=== PATIENT | male | born 1970 | race African-American/Black ===

== ENCOUNTER 2022-02-24 17:41 | Inpatient (IN) | payer MEDICAID, SELFPAY ==
[2022-02-24] MEDS ORDERED: Fentanyl CADD 100 ML IV SCH (18:00)
[2022-02-24 18:05] LABS: Actual Bicarbonate (HCO3a) 14.6 mEq/L (22-28); Analyzer IN Cardio ER; Base Excess (BEa) -12.5 mEq/L (-2.0 to +3.0); CO2 Tension 37.6 mmHg (35.0-45.0); Calcium, Ionized (arterial) 1.09 mmol/L (1.12-1.30); Carboxyhemoglobin (COHb) 0.1 gm% (0.0-3.0); Hemoglobin (Hb) 15.7 g/dL (14.0-18.0); O2 Tension (PaO2), arterial 92.7 mmHg (80.0-100.0)
[2022-02-24 18:31] LABS: Bilirubin Negative (Negative); Glucose, Urine (Dipstick) Normal (Negative); Ketone, Urine Trace mg/dL (Negative); Leukocyte 250 Leu/uL (Negative); Nitrite Negative (Negative); Protein, Urine (Dipstick) 70 mg/dL (Neg-Trace); Specific Gravity, Urine 1.014 (1.002-1.036); Squamous Epithelial 0-3 HPF (0-3); Urobilinogen Normal mg/dL (Less than 2); pH, Urine 5.5 (5.0-9.0)
[2022-02-24 18:32] LABS: Amphetamine Detected (NotDetected); Barbiturates Screen Not Detected (NotDetected); Benzodiazepine Screen Not Detected (NotDetected); Cocaine Metabolite Screen Not Detected (NotDetected); Methadone Not Detected (NotDetected); Methamphetamine Detected (NotDetected); Opiate Screen Not Detected (NotDetected); Oxycodone Screen Not Detected (NotDetected); Phencyclidine (PCP) Not Detected (NotDetected); THC/Cannabinoid Screen Not Detected (NotDetected); Tricyclic Screen Not Detected (NotDetected)
[2022-02-24 18:34] LABS: INR-International Normal Ratio 1.2; Prothrombin Time 15.1 sec (12.0-14.7)
[2022-02-24 18:48] LABS: ALT (SGPT) 171 U/L (8-55); AST (SGOT) 608 U/L (5-34); Alkaline Phosphatase 104 U/L (40-110); Anion Gap 29 mmol/L (10-20); BUN (Urea Nitrogen) 22 mg/dL (8.9-20.6); Bilirubin, Total 1.6 mg/dL (0.2-1.2); Calc. Creatinine Clearance 0 mL/min (70-130); Calcium 9.2 mg/dL (7.8-10.44); Carbon Dioxide 11 mmol/L (22-29); Chloride 116 mmol/L (98-107); Estimated GFR 19; Globulin 4.1 g/dL (2.4-3.5); Lipase 124 U/L (8-78); Magnesium 2.2 mg/dL (1.6-2.6); Potassium 6.3 mmol/L (3.5-5.1); Protein, Total 9.1 g/dL (6.0-8.3); Sodium 150 mmol/L (136-145)
[2022-02-24 18:52] LABS: Acetaminophen Less than 10.0 mcg/mL (10.0-30.0); Alcohol Less than 10 mg/dL (Less than 10); Salicylate Less than 8.0 mg/dL (15.0-30.0)
[2022-02-24 18:57] LABS: Glucose 57 mg/dL (70-105)
[2022-02-24 18:59] LABS: Clarity Cloudy (Clear); Unclassified Crystals 1+ HPF (None Seen)
[2022-02-24 19:02] LABS: Yeast-Budding None Seen HPF (None Seen)
[2022-02-24 19:04] LABS: Bacteria/HPF 1+ HPF (None Seen); Sperm/HPF 3+ HPF (None Seen)
[2022-02-24 19:05] LABS: Blood, Urine 2+ (Negative)
[2022-02-24 19:14] LABS: Band 9 % (5-11); Hypersemented Neutrophil SLIGHT; Lymphocytes 6 % (21-51); MDiff Complete? YES; Mean Corpuscular Hemoglobin 31.3 pg (27.0-31.0); Mean Corpuscular Volume 89.5 fL (78.0-98.0); Mean Platelet Volume 8.5 fL (7.4-10.4); Monocytes 7 % (0-10); Neutrophil 76 % (42-75); Platelet Count 141 thou/uL (130-400); Platelet Morphology Comment Appears Adequate; Polychromasia MODERATE = 3-4 cells (100X) (0-2/hpf); RBC Distribution Width 12.8 % (11.5-14.5); Reactive Lymphocytes 1 % (0-10); Red Blood Cell (RBC) Count 5.43 mill/uL (4.70-6.10); Stomatocytes SLIGHT = 2-5 cells (100X) (0-1/hpf); White Blood Cell (WBC) Count 16.2 thou/uL (4.8-10.8)
[2022-02-24] MEDS ORDERED: Sodium Bicarb 50 MEQ/50 ML Abboject 8.4% SYRINGE ONE (19:28)
[2022-02-24] MEDS ORDERED: CALCIUM GLUC 1GM/NS 50ML BAG ONE ×2 (19:28→19:30)
[2022-02-24] MEDS ORDERED: Dextrose 50% Abboject 50 ML SYRINGE ONE (19:28)
[2022-02-24] MEDS ORDERED: Insulin Regular 300 UNITS/3 ML VIAL ONE (19:28)
[2022-02-24] MEDS ORDERED: Sodium Bicarbonate 100 MEQ in Dextrose 5% in Water 1,000 ML IV SCH (19:30)
[2022-02-24] MEDS ORDERED: Calcium Gluc 4.6 MEQ/10 ML (100 MG/ML) ONE (19:31)
[2022-02-24 19:32] LABS: CK (CPK) 25808 U/L (30-200)
[2022-02-24 19:39] LABS: SARS-CoV-2 NAA Rapid Test Not Detected (NotDetected)
[2022-02-24 20:02] LABS: Anion Gap 23 mmol/L (10-20); BUN (Urea Nitrogen) 23 mg/dL (8.9-20.6); Calc. Creatinine Clearance 0 mL/min (70-130); Carbon Dioxide 10 mmol/L (22-29); Chloride 121 mmol/L (98-107); Estimated GFR 20; Potassium 4.9 mmol/L (3.5-5.1); Sodium 149 mmol/L (136-145)
[2022-02-24 20:05] LABS: Glucose 57 mg/dL (70-105)
[2022-02-24] MEDS ORDERED: Cefepime 2 GM VIAL ONE (20:17)
[2022-02-24 20:33] LABS: CKMB 72.8 ng/mL (0-6.6)
[2022-02-24] MEDS ORDERED: Midazolam HCl 2 mg/2 ml Vial SLOW IVP PRN (21:04)
[2022-02-24] MEDS: Propofol 1,000 MG/100 ML VIAL IV PRN (21:14)
[2022-02-24] MEDS ORDERED: DISCONTINUE PREVIOUS NARCOTIC PAIN MEDICATIONS AND BENZODIAZEPINES FS SCH (21:15)
[2022-02-24] MEDS ORDERED: Morphine 4 MG/ML VIAL SLOW IVP PRN (21:15)
[2022-02-24] MEDS ORDERED: Propofol BOLUS 1,000 MG/100 ML VIAL IV PRN (21:15)
[2022-02-24] MEDS ORDERED: Fentanyl BOLUS 250 ML IVPB PRN (21:15)
[2022-02-24 21:16] LABS: pH, Arterial 7.21 (7.35-7.45)
[2022-02-24 21:18] LABS: Puncture Site RRA
[2022-02-24] MEDS ORDERED: Ondansetron PF 4 MG/2 ML Vial IVP PRN (21:40)
[2022-02-24] MEDS ORDERED: Acetaminophen 325 MG TAB PO PRN (21:40)
[2022-02-24 21:46] LABS: Lactic Acid 4.9 mmol/L (0.5-2.2)
[2022-02-24 21:54] LABS: Troponin I 0.748 ng/mL (< 0.028)
[2022-02-24 23:22] LABS: Anion Gap 21 mmol/L (10-20); BUN (Urea Nitrogen) 26 mg/dL (8.9-20.6); Calc. Creatinine Clearance 19 mL/min (70-130); Calcium 8.4 mg/dL (7.8-10.44); Carbon Dioxide 12 mmol/L (22-29); Chloride 120 mmol/L (98-107); Estimated GFR 20; Glucose 150 mg/dL (70-105); Potassium 3.1 mmol/L (3.5-5.1); Sodium 150 mmol/L (136-145)
[2022-02-24] MEDS ORDERED: Potassium Chloride 20 MEQ TAB PO SCH (23:45)
[2022-02-25] MEDS ORDERED: Lorazepam 1 MG TAB PO PRN
[2022-02-25] MEDS ORDERED: Dextrose 50% Abboject 50 ML SYRINGE SLOW IVP PRN (00:04)
[2022-02-25] MEDS ORDERED: Dextrose 5% in Water 1,000 ML IV PRN (00:04)
[2022-02-25 04:46] LABS: ALT (SGPT) 443 U/L (8-55); AST (SGOT) 2742 U/L (5-34); Albumin 3.5 g/dL (3.5-5.0); Alkaline Phosphatase 70 U/L (40-110); Anion Gap 19 mmol/L (10-20); BUN (Urea Nitrogen) 30 mg/dL (8.9-20.6); Calc. Creatinine Clearance 18 mL/min (70-130); Calcium 8.2 mg/dL (7.8-10.44); Carbon Dioxide 16 mmol/L (22-29); Chloride 116 mmol/L (98-107); Estimated GFR 18; Globulin 2.9 g/dL (2.4-3.5); Glucose 138 mg/dL (70-105); Potassium 2.9 mmol/L (3.5-5.1); Protein, Total 6.4 g/dL (6.0-8.3); Sodium 148 mmol/L (136-145)
[2022-02-25] MEDS ORDERED: Potassium Chloride 20 MEQ TAB PER TUBE SCH (05:00)
[2022-02-25 05:12] LABS: CK (CPK) Greater than 40000 U/L (30-200)
[2022-02-25 05:37] LABS: Magnesium 2.1 mg/dL (1.6-2.6)
[2022-02-25 06:46] LABS: Hemoglobin 14.1 g/dL (14.0-18.0); Mean Corpuscular HGB CONC 34.7 g/dL (32.0-36.0); Mean Corpuscular Hemoglobin 31.2 pg (27.0-31.0); Mean Platelet Volume 9.4 fL (7.4-10.4); Platelet Count 21 thou/uL (130-400); Platelet Morphology Comment Appears Decreased; RBC Distribution Width 13.1 % (11.5-14.5); RBC Morphology Normal; Red Blood Cell (RBC) Count 4.51 mill/uL (4.70-6.10); White Blood Cell (WBC) Count 9.5 thou/uL (4.8-10.8)
[2022-02-25 06:50] LABS: Troponin I 1.414 ng/mL (< 0.028)
[2022-02-25 08:25] LABS: Mean Corpuscular Volume 91.3 fL (78.0-98.0); Mean Platelet Volume 9.3 fL (7.4-10.4); Platelet Count 29 thou/uL (130-400); RBC Distribution Width 13.1 % (11.5-14.5); Red Blood Cell (RBC) Count 4.39 mill/uL (4.70-6.10); White Blood Cell (WBC) Count 8.9 thou/uL (4.8-10.8)
[2022-02-25] MEDS ORDERED: Famotidine 20 MG TAB PO SCH (09:00)
[2022-02-25] MEDS ORDERED: Cefepime 1 GM in Sodium Chloride 0.9% 100 ML IVPB SCH (09:00)
[2022-02-25] MEDS ORDERED: Heparin 5,000 UNITS/ML VIAL SC SCH ×2 (09:00→21:00)
[2022-02-25 09:42] LABS: Anion Gap 19 mmol/L (10-20); BUN (Urea Nitrogen) 32 mg/dL (8.9-20.6); Calc. Creatinine Clearance 17 mL/min (70-130); Calcium 7.9 mg/dL (7.8-10.44); Carbon Dioxide 18 mmol/L (22-29); Chloride 114 mmol/L (98-107); Estimated GFR 17; Glucose 98 mg/dL (70-105); Potassium 3.3 mmol/L (3.5-5.1); Sodium 148 mmol/L (136-145)
[2022-02-25] MEDS: Propofol 1,000 MG/100 ML VIAL IV PRN (09:45)
[2022-02-25] MEDS: Sodium Bicarbonate 50 MEQ in Dextrose 5% in Water 1,000 ML IV SCH ×2 (11:11→21:20)
[2022-02-25] MEDS ORDERED: Potassium Bicarbonate/Cit Ac 20 MEQ TAB PER TUBE SCH (11:15)
[2022-02-25] MEDS ORDERED: Lactated Ringer's 1,000 ML IV SCH (11:15)
[2022-02-25] MEDS ORDERED: Dexmedetomidine In 0.9 % NaCl 100 ML IVPB SCH (13:00)
[2022-02-25 13:43] LABS: Anion Gap 20 mmol/L (10-20); BUN (Urea Nitrogen) 33 mg/dL (8.9-20.6); Calc. Creatinine Clearance 17 mL/min (70-130); Calcium 7.9 mg/dL (7.8-10.44); Carbon Dioxide 19 mmol/L (22-29); Chloride 111 mmol/L (98-107); Estimated GFR 17; Glucose 98 mg/dL (70-105); Potassium 3.7 mmol/L (3.5-5.1); Sodium 146 mmol/L (136-145)
[2022-02-25 14:15] LABS: INR-International Normal Ratio 1.4; PTT 34.9 sec (22.9-36.1); Prothrombin Time 17.7 sec (12.0-14.7)
[2022-02-25] MEDS ORDERED: Lorazepam 2 MG/ML VIAL IM PRN (18:22)
[2022-02-25] MEDS ORDERED: Ondansetron ODT 4 MG TAB PO PRN (18:30)
[2022-02-25] MEDS ORDERED: Electrolyte Replacement Protocol 1 EACH FS PRN (18:30)
[2022-02-25] MEDS: Lorazepam 1 MG TAB PO SCH ×3 (18:43→23:03)
[2022-02-25] MEDS: Thiamine HCl 200 MG/2 ML VIAL SLOW IVP SCH (18:52)
[2022-02-25 19:06] LABS: Anion Gap 23 mmol/L (10-20); BUN (Urea Nitrogen) 35 mg/dL (8.9-20.6); Calc. Creatinine Clearance 14 mL/min (70-130); Calcium 7.7 mg/dL (7.8-10.44); Carbon Dioxide 21 mmol/L (22-29); Chloride 105 mmol/L (98-107); Estimated GFR 14; Glucose 143 mg/dL (70-105); Potassium 3.9 mmol/L (3.5-5.1); Sodium 145 mmol/L (136-145)
[2022-02-25 19:32] LABS: #Lymphocytes 1.6 thou/uL (1.20-3.40); #Monocytes 0.6 thou/uL (0.11-0.59); #Neutrophils 7.8 thou/uL (1.40-6.50); %Basophils 0.2 % (0.0-1.0); %Eosinophils 0.2 % (0.0-10.0); %Lymphocytes 16.1 % (21.0-51.0); %Monocytes 5.5 % (0.0-10.0); Band 14 % (5-11); Lymphocytes 9 % (21-51); MDiff Complete? YES; Monocytes 2 % (0-10); Neutrophil 75 % (42-75); Nucleated RBC 1 % (0)
[2022-02-26 04:26] LABS: Hemoglobin A1c 5.2 % (4.0-6.0)
[2022-02-26 04:42] LABS: Iron 191 ug/dL (65-175); Iron Binding Capacity, Total 261 mcg/dL (261-462)
[2022-02-26 04:45] LABS: ALT (SGPT) 822 U/L (8-55); AST (SGOT) 3484 U/L (5-34); Albumin 3.3 g/dL (3.5-5.0); Alkaline Phosphatase 68 U/L (40-110); Anion Gap 23 mmol/L (10-20); BUN (Urea Nitrogen) 37 mg/dL (8.9-20.6); Bilirubin, Total 3.3 mg/dL (0.2-1.2); Calc. Creatinine Clearance 12 mL/min (70-130); Calcium 7.5 mg/dL (7.8-10.44); Carbon Dioxide 20 mmol/L (22-29); Cardiac Risk 7.9 (Less than 4.5); Chloride 102 mmol/L (98-107); Cholesterol 142 mg/dl (< 200 Desired); Estimated GFR 11; Glucose 138 mg/dL (70-105); HDL Cholesterol 18 mg/dL (>60 Neg Risk); Iron 191 ug/dL (65-175); Iron Binding Capacity, Total 259 mcg/dL (261-462); Magnesium 1.5 mg/dL (1.6-2.6); Potassium 5.4 mmol/L (3.5-5.1); Protein, Total 6.3 g/dL (6.0-8.3); Sodium 140 mmol/L (136-145); Triglycerides 638 mg/dL (Less than 150)
[2022-02-26 04:57] LABS: Thyroid Stimulating Hormone 2.3784 uIU/mL (0.35-4.94)
[2022-02-26 05:10] LABS: Band 23 % (5-11); Lymphocytes 19 % (21-51); MDiff Complete? YES; Mean Corpuscular HGB CONC 34.8 g/dL (32.0-36.0); Mean Corpuscular Hemoglobin 31.2 pg (27.0-31.0); Mean Corpuscular Volume 89.5 fL (78.0-98.0); Mean Platelet Volume 9.7 fL (7.4-10.4); Metamyelocyte 1 % (0-0); Monocytes 5 % (0-10); Neutrophil 52 % (42-75); Platelet Count 43 thou/uL (130-400); Platelet Morphology Comment Appears Decreased; RBC Distribution Width 13.1 % (11.5-14.5); RBC Morphology Normal; Red Blood Cell (RBC) Count 5.13 mill/uL (4.70-6.10); White Blood Cell (WBC) Count 15.7 thou/uL (4.8-10.8)
[2022-02-26 05:11] LABS: HBCM Index 0.08 S/CO (0-0.79); HBSAg Index 0.29 S/CO (0-0.99); Hep A IgM AB Non-Reactive (NonReactive); Hep A IgM S/CO 0.63 S/CO (0-0.79); Hep B Surf Ag Non-Reactive S/CO (NonReactive); Hep C IgG Ab Non-Reactive (NonReactive); Hep C Index 0.06 S/CO (0-0.79); Hepatitis B Core IgM Abs Non-Reactive (NonReactive)
[2022-02-26] MEDS: Lorazepam 1 MG TAB PO SCH ×3 (05:26→17:38)
[2022-02-26] MEDS: Sodium Bicarbonate 50 MEQ in Dextrose 5% in Water 1,000 ML IV SCH ×2 (05:26→18:27)
[2022-02-26 06:21] LABS: Ferritin 11923.07 ng/mL (22-322)
[2022-02-26] MEDS: Folic Acid 1 MG TAB PO SCH (07:55)
[2022-02-26] MEDS: cefTRIAXone\\ROCEPHIN 1 GM in Sodium Chloride 0.9% 100 ML IVPB SCH (07:55)
[2022-02-26] MEDS: Famotidine 20 MG TAB PO SCH (07:55)
[2022-02-26] MEDS ORDERED: Multivit, Therapeutic 1 TAB PO SCH (09:00)
[2022-02-26] MEDS: Nicotine 21 MG PATCH TOP SCH (10:16)
[2022-02-26 12:53] LABS: Actual Bicarbonate (HCO3a) 21.4 mEq/L (22-28); Analyzer IN Cardio ER; Base Excess (BEa) -1.3 mEq/L (-2.0 to +3.0); CO2 Tension 30.7 mmHg (35.0-45.0); Calcium, Ionized (arterial) 0.94 mmol/L (1.12-1.30); Carboxyhemoglobin (COHb) 0.3 gm% (0.0-3.0); Hemoglobin (Hb) 14.6 g/dL (14.0-18.0); Potassium - ABG Lab 3.95 mmol/L (3.70-5.30); pH, Arterial 7.46 (7.35-7.45)
[2022-02-26 12:59] LABS: Puncture Site RRA
[2022-02-26 13:00] LABS: ALV-art Gradient 98.265 mmHg (0-20)
[2022-02-26] MEDS ORDERED: Furosemide 40 MG/4 ML VIAL SLOW IVP SCH (13:00)
[2022-02-26] MEDS: Thiamine HCl 200 MG/2 ML VIAL SLOW IVP SCH (17:38)
[2022-02-26] MEDS ORDERED: Lorazepam 1 MG TAB PO PRN (18:30)
[2022-02-26] MEDS ORDERED: Dexmedetomidine In 0.9 % NaCl 100 ML IVPB SCH (19:00)
[2022-02-27] MEDS: Lorazepam 1 MG TAB PO SCH (03:57)
[2022-02-27] MEDS: Lorazepam 0.5 MG TAB PO SCH ×3 (06:17→17:28)
[2022-02-27 07:41] LABS: Hemoglobin 13.7 g/dL (14.0-18.0); Mean Corpuscular HGB CONC 34.9 g/dL (32.0-36.0); Mean Corpuscular Hemoglobin 31.4 pg (27.0-31.0); Mean Corpuscular Volume 89.9 fL (78.0-98.0); Mean Platelet Volume 10.9 fL (7.4-10.4); Platelet Count 35 thou/uL (130-400); RBC Distribution Width 12.9 % (11.5-14.5); Red Blood Cell (RBC) Count 4.36 mill/uL (4.70-6.10); White Blood Cell (WBC) Count 14.9 thou/uL (4.8-10.8)
[2022-02-27 07:59] LABS: ALT (SGPT) 772 U/L (8-55); AST (SGOT) 2286 U/L (5-34); Albumin 2.9 g/dL (3.5-5.0); Alkaline Phosphatase 67 U/L (40-110); Anion Gap 21 mmol/L (10-20); BUN (Urea Nitrogen) 52 mg/dL (8.9-20.6); Bilirubin, Total 5.2 mg/dL (0.2-1.2); Calc. Creatinine Clearance 9 mL/min (70-130); Calcium 7.1 mg/dL (7.8-10.44); Carbon Dioxide 24 mmol/L (22-29); Chloride 95 mmol/L (98-107); Estimated GFR 7; Globulin 2.7 g/dL (2.4-3.5); Glucose 126 mg/dL (70-105); Magnesium 1.4 mg/dL (1.6-2.6); Potassium 4.6 mmol/L (3.5-5.1); Protein, Total 5.6 g/dL (6.0-8.3); Sodium 135 mmol/L (136-145)
[2022-02-27] MEDS: cefTRIAXone\\ROCEPHIN 1 GM in Sodium Chloride 0.9% 100 ML IVPB SCH (08:04)
[2022-02-27] MEDS: Folic Acid 1 MG TAB PO SCH ×2 (08:04→08:07)
[2022-02-27] MEDS: Famotidine 20 MG TAB PO SCH ×2 (08:04→08:07)
[2022-02-27] MEDS: Sodium Bicarbonate 50 MEQ in Dextrose 5% in Water 1,000 ML IV SCH ×2 (08:15→18:01)
[2022-02-27 08:26] LABS: Band 22 % (5-11); Eosinophils 1 % (0-10); Lymphocytes 20 % (21-51); MDiff Complete? YES; Monocytes 6 % (0-10); Neutrophil 50 % (42-75); Nucleated RBC 1 % (0); Platelet Morphology Comment Appears Decreased; Polychromasia SLIGHT = 2-3 cells (100X) (0-2/hpf); Reactive Lymphocytes 1 % (0-10)
[2022-02-27 08:48] LABS: CK (CPK) Greater than 40000 U/L (30-200)
[2022-02-27] MEDS ORDERED: Magnesium Sulfate In Water 4 GM in Premix Bag 1 BAG IVPB SCH (09:00)
[2022-02-27] MEDS ORDERED: Haloperidol Lactate 5 MG/ML VIAL SLOW IVP SCH (09:00)
[2022-02-27] MEDS ORDERED: Diazepam 10 MG/2 ML SYRINGE IVP PRN (09:25)
[2022-02-27 09:29] LABS: Hemoglobin A1c 5.2 % (4.0-6.0)
[2022-02-27] MEDS ORDERED: Haloperidol Lactate 5 MG/ML VIAL IM SCH (09:30)
[2022-02-27] MEDS ORDERED: Ondansetron ORAL SOLN. 4 MG/5 ML UDCUP PO PRN (09:40)
[2022-02-27] MEDS ORDERED: Ondansetron PF 4 MG/2 ML Vial IVP PRN (09:40)
[2022-02-27] MEDS: Nicotine 21 MG PATCH TOP SCH (09:43)
[2022-02-27] MEDS ORDERED: Ondansetron ODT 4 MG TAB PO PRN (10:00)
[2022-02-27] MEDS: Magnesium 2 GM/50 ML(in water) 2 GM in Premix Bag 1 BAG IVPB SCH ×2 (13:21→14:36)
[2022-02-27] MEDS ORDERED: Diazepam 10 MG/2 ML SYRINGE IVP SCH ×2 (13:30→18:00)
[2022-02-27] MEDS ORDERED: ceFAZolin 2 GM/Dextrose 50 ML 2 GM in Premix Bag 1 BAG IVPB SCH (13:45)
[2022-02-27] MEDS: Thiamine HCl 200 MG/2 ML VIAL SLOW IVP SCH (17:31)
[2022-02-27] MEDS ORDERED: Lorazepam 1 MG TAB PO PRN (18:30)
[2022-02-27 21:01] LABS: Actual Bicarbonate (HCO3a) 15.4 mEq/L (22-28); Base Excess (BEa) -12.4 mEq/L (-2.0 to +3.0); CO2 Tension 41.8 mmHg (35.0-45.0); Calcium, Ionized (arterial) 0.91 mmol/L (1.12-1.30); Carboxyhemoglobin (COHb) 0.6 gm% (0.0-3.0); Hemoglobin (Hb) 13.2 g/dL (14.0-18.0); O2 Tension (PaO2), arterial 101.7 mmHg (80.0-100.0); Potassium - ABG Lab 3.85 mmol/L (3.70-5.30)
[2022-02-27 21:11] LABS: Hemoglobin 13.9 g/dL (14.0-18.0); Mean Corpuscular HGB CONC 34.3 g/dL (32.0-36.0); Mean Corpuscular Hemoglobin 31.4 pg (27.0-31.0); Mean Corpuscular Volume 91.5 fL (78.0-98.0); Red Blood Cell (RBC) Count 4.45 mill/uL (4.70-6.10); White Blood Cell (WBC) Count 18.3 thou/uL (4.8-10.8)
[2022-02-27 21:30] LABS: ALT (SGPT) 973 U/L (8-55); AST (SGOT) 2905 U/L (5-34); Albumin 3.2 g/dL (3.5-5.0); Alkaline Phosphatase 119 U/L (40-110); Anion Gap 31 mmol/L (10-20); BUN (Urea Nitrogen) 63 mg/dL (8.9-20.6); Bilirubin, Total 7.5 mg/dL (0.2-1.2); Calc. Creatinine Clearance 8 mL/min (70-130); Calcium 7.4 mg/dL (7.8-10.44); Carbon Dioxide 15 mmol/L (22-29); Chloride 91 mmol/L (98-107); Estimated GFR 6; Globulin 2.9 g/dL (2.4-3.5); Glucose 87 mg/dL (70-105); Lactic Acid 9.3 mmol/L (0.5-2.2); Magnesium 3.3 mg/dL (1.6-2.6); Potassium 5.2 mmol/L (3.5-5.1); Protein, Total 6.1 g/dL (6.0-8.3); Sodium 132 mmol/L (136-145)
[2022-02-27] MEDS ORDERED: Ventilator Sedation Protocol 1 EACH FS SCH (21:30)
[2022-02-27 21:31] LABS: Band 15 % (5-11); Lymphocytes 17 % (21-51); MDiff Complete? YES; Mean Platelet Volume 10.7 fL (7.4-10.4); Monocytes 7 % (0-10); Neutrophil 57 % (42-75); Nucleated RBC 3 % (0); Platelet Count 52 thou/uL (130-400); Platelet Morphology Comment Appears Decreased; RBC Morphology Normal; Reactive Lymphocytes 4 % (0-10)
[2022-02-27 21:40] LABS: Troponin I 0.918 ng/mL (< 0.028)
[2022-02-27] MEDS ORDERED: Fentanyl BOLUS 250 ML IVPB PRN (21:45)
[2022-02-27] MEDS ORDERED: Morphine 4 MG/ML VIAL SLOW IVP PRN (21:45)
[2022-02-27] MEDS ORDERED: Propofol 1,000 MG/100 ML VIAL IV PRN (21:45)
[2022-02-27] MEDS ORDERED: Fentanyl CADD 100 ML IV SCH (21:45)
[2022-02-27] MEDS ORDERED: DISCONTINUE PREVIOUS NARCOTIC PAIN MEDICATIONS AND BENZODIAZEPINES FS SCH (21:45)
[2022-02-27] MEDS ORDERED: Propofol BOLUS 1,000 MG/100 ML VIAL IV PRN (21:45)
[2022-02-27 21:46] LABS: Actual Bicarbonate (HCO3a) 18.7 mEq/L (22-28); Base Excess (BEa) -7.2 mEq/L (-2.0 to +3.0); CO2 Tension 39.2 mmHg (35.0-45.0); Calcium, Ionized (arterial) 0.86 mmol/L (1.12-1.30); Carboxyhemoglobin (COHb) 0.3 gm% (0.0-3.0); Hemoglobin (Hb) 12.5 g/dL (14.0-18.0); Potassium - ABG Lab 5.43 mmol/L (3.70-5.30)
[2022-02-27 21:47] LABS: INR-International Normal Ratio 1.4; PTT 31.3 sec (22.9-36.1); Prothrombin Time 17.2 sec (12.0-14.7)
[2022-02-27 21:49] LABS: O2 Tension (PaO2), arterial 57.9 mmHg (80.0-100.0)
[2022-02-27 21:50] LABS: Puncture Site LBA
[2022-02-27 21:51] LABS: Puncture Site RRA; pH, Arterial 7.18 (7.35-7.45)
[2022-02-27] MEDS ORDERED: Cefepime 1 GM in Sodium Chloride 0.9% 100 ML IVPB SCH (22:00)
[2022-02-27] MEDS ORDERED: VANCOMYCIN 1.25 GM/250 ML BAG 1.25 GM in Premix Bag 1 BAG IVPB SCH (22:00)
[2022-02-27] MEDS ORDERED: NOREPINEPHRINE 8 MG/250 ML-D5W 250 ML IVPB PRN (22:06)
[2022-02-27] MEDS ORDERED: Fentanyl 100 MCG/2 ML VIAL ONE (22:22)
[2022-02-28 00:12] LABS: Critical Call Chem Troponin I RESULT DECREASING; Troponin I 0.784 ng/mL (< 0.028)
[2022-02-28] MEDS ORDERED: Vasopressin 20 UNIT, Admixture Fee 1 EACH in Sodium Chloride 0.9% 50 ML IV SCH (00:15)
[2022-02-28] MEDS: Sodium Bicarbonate 50 MEQ in Dextrose 5% in Water 1,000 ML IV SCH ×2 (01:18→11:30)
[2022-02-28 03:20] LABS: Critical Call Chem Troponin I RESULT DECREASING; Troponin I 0.678 ng/mL (< 0.028)
[2022-02-28 03:32] LABS: Band 20 % (5-11); Hemoglobin 12.9 g/dL (14.0-18.0); Hypochromia SLIGHT = 6-15 cells (100X) (0-5/hpf); Lymphocytes 1 % (21-51); MDiff Complete? YES; Mean Corpuscular HGB CONC 35.5 g/dL (32.0-36.0); Mean Corpuscular Hemoglobin 32.1 pg (27.0-31.0); Mean Corpuscular Volume 90.3 fL (78.0-98.0); Mean Platelet Volume 10.2 fL (7.4-10.4); Monocytes 6 % (0-10); Neutrophil 73 % (42-75); Platelet Count 46 thou/uL (130-400); Platelet Morphology Comment Appears Decreased; RBC Distribution Width 12.9 % (11.5-14.5); Red Blood Cell (RBC) Count 4.02 mill/uL (4.70-6.10); White Blood Cell (WBC) Count 15.3 thou/uL (4.8-10.8)
[2022-02-28 03:39] LABS: ALT (SGPT) 1034 U/L (8-55); AST (SGOT) 2870 U/L (5-34); Alkaline Phosphatase 117 U/L (40-110); Anion Gap 20 mmol/L (10-20); BUN (Urea Nitrogen) 28 mg/dL (8.9-20.6); Bilirubin, Total 6.4 mg/dL (0.2-1.2); Calc. Creatinine Clearance 17 mL/min (70-130); Calcium 7.7 mg/dL (7.8-10.44); Carbon Dioxide 23 mmol/L (22-29); Cardiac Risk 4.7 (Less than 4.5); Chloride 94 mmol/L (98-107); Cholesterol 75 mg/dl (< 200 Desired); Estimated GFR 16; Globulin 2.8 g/dL (2.4-3.5); Glucose 120 mg/dL (70-105); HDL Cholesterol 16 mg/dL (>60 Neg Risk); LDL Cholesterol, Calculated 28 mg/dL; Magnesium 2.1 mg/dL (1.6-2.6); Potassium 3.7 mmol/L (3.5-5.1); Protein, Total 5.8 g/dL (6.0-8.3); Sodium 133 mmol/L (136-145); Triglycerides 153 mg/dL (Less than 150)
[2022-02-28] MEDS ORDERED: Lorazepam 0.5 MG TAB PO PRN (06:00)
[2022-02-28] MEDS: Folic Acid 1 MG TAB PO SCH (08:56)
[2022-02-28] MEDS: Thiamine 100 MG TAB PO SCH (08:56)
[2022-02-28] MEDS: Nicotine 21 MG PATCH TOP SCH (08:58)
[2022-02-28] MEDS ORDERED: Vancomycin Hemodialysis Sliding Scale FS SCH (09:15)
[2022-02-28] MEDS ORDERED: Sodium Chloride 0.9% (PF) 10 ML VIAL FS PRN (09:15)
[2022-02-28 10:33] LABS: Lactic Acid 1.9 mmol/L (0.5-2.2)
[2022-02-28 10:35] LABS: Vancomycin, Random 16.2 ug/mL (See Comment)
[2022-02-28 11:08] LABS: Actual Bicarbonate (HCO3a) 26.1 mEq/L (22-28); Base Excess (BEa) 5.4 mEq/L (-2.0 to +3.0); CO2 Tension 26.5 mmHg (35.0-45.0); Calcium, Ionized (arterial) 0.87 mmol/L (1.12-1.30); Carboxyhemoglobin (COHb) 0.1 gm% (0.0-3.0); Potassium - ABG Lab 3.28 mmol/L (3.70-5.30)
[2022-02-28] MEDS: Pantoprazole 40 MG VIAL IVP SCH (11:31)
[2022-02-28 12:34] LABS: pH, Arterial 7.61 (7.35-7.45)
[2022-02-28 12:35] LABS: ALV-art Gradient 255.375 mmHg (0-20); Puncture Site Arterial Line
[2022-02-28 12:42] LABS: Actual Bicarbonate (HCO3a) 26.2 mEq/L (22-28); Base Excess (BEa) 4.6 mEq/L (-2.0 to +3.0); CO2 Tension 29.7 mmHg (35.0-45.0); Calcium, Ionized (arterial) 0.88 mmol/L (1.12-1.30); Carboxyhemoglobin (COHb) 0.3 gm% (0.0-3.0); Hemoglobin (Hb) 12.3 g/dL (14.0-18.0); O2 Tension (PaO2), arterial 83.4 mmHg (80.0-100.0); Potassium - ABG Lab 3.23 mmol/L (3.70-5.30)
[2022-02-28] MEDS ORDERED: Sodium Chloride 0.9% 250 ML 250 ML IVPB SCH (12:45)
[2022-02-28] MEDS ORDERED: Heparin 10,000 UNITS/ 10 ML VIAL ONE (13:07)
[2022-02-28 13:21] LABS: Puncture Site Arterial Line; pH, Arterial 7.56 (7.35-7.45)
[2022-02-28 13:22] LABS: ALV-art Gradient 235.975 mmHg (0-20)
[2022-02-28] MEDS ORDERED: Vancomycin HCl 750 MG in Sodium Chloride 0.9% 250 ML 250 ML IVPB SCH (17:00)
[2022-02-28 17:21] LABS: Anion Gap 19 mmol/L (10-20); BUN (Urea Nitrogen) 46 mg/dL (8.9-20.6); Calc. Creatinine Clearance 11 mL/min (70-130); Calcium 7.4 mg/dL (7.8-10.44); Carbon Dioxide 24 mmol/L (22-29); Chloride 92 mmol/L (98-107); Estimated GFR 8; Glucose 110 mg/dL (70-105); Potassium 3.7 mmol/L (3.5-5.1); Sodium 131 mmol/L (136-145)
[2022-02-28] MEDS: Cefepime 1 GM in Sodium Chloride 0.9% 100 ML IVPB SCH (18:01)
[2022-02-28] MEDS: Polyethylene Glycol 3350 17 GM Packet PO SCH (21:48)
[2022-02-28] MEDS ORDERED: Vancomycin 0.01 GM in Premix Bag 1 BAG IVPB SCH (23:00)
[2022-03-01 04:10] LABS: ALT (SGPT) 698 U/L (8-55); AST (SGOT) 1273 U/L (5-34); Albumin 2.7 g/dL (3.5-5.0); Alkaline Phosphatase 115 U/L (40-110); Anion Gap 21 mmol/L (10-20); BUN (Urea Nitrogen) 54 mg/dL (8.9-20.6); Bilirubin, Total 6.1 mg/dL (0.2-1.2); Calc. Creatinine Clearance 10 mL/min (70-130); Calcium 7.5 mg/dL (7.8-10.44); Carbon Dioxide 23 mmol/L (22-29); Chloride 93 mmol/L (98-107); Estimated GFR 7; Globulin 2.8 g/dL (2.4-3.5); Glucose 90 mg/dL (70-105); Magnesium 2.3 mg/dL (1.6-2.6); Potassium 4.5 mmol/L (3.5-5.1); Protein, Total 5.5 g/dL (6.0-8.3); Sodium 132 mmol/L (136-145)
[2022-03-01 06:21] LABS: Band 17 % (5-11); Hemoglobin 11.7 g/dL (14.0-18.0); Lymphocytes 6 % (21-51); MDiff Complete? YES; Mean Corpuscular Hemoglobin 31.3 pg (27.0-31.0); Mean Corpuscular Volume 89.6 fL (78.0-98.0); Mean Platelet Volume 10.1 fL (7.4-10.4); Monocytes 17 % (0-10); Neutrophil 60 % (42-75); Platelet Count 90 thou/uL (130-400); Platelet Morphology Comment Appears Decreased; Red Blood Cell (RBC) Count 3.74 mill/uL (4.70-6.10); White Blood Cell (WBC) Count 15.2 thou/uL (4.8-10.8)
[2022-03-01 07:04] LABS: Vancomycin, Random 26.9 ug/mL (See Comment)
[2022-03-01 07:43] LABS: Base Excess (BEa) -0.5 mEq/L (-2.0 to +3.0); CO2 Tension 29.8 mmHg (35.0-45.0); Calcium, Ionized (arterial) 0.93 mmol/L (1.12-1.30); Carboxyhemoglobin (COHb) 0.1 gm% (0.0-3.0); O2 Tension (PaO2), arterial 88.2 mmHg (80.0-100.0); Potassium - ABG Lab 4.24 mmol/L (3.70-5.30); pH, Arterial 7.49 (7.35-7.45)
[2022-03-01 08:08] LABS: Puncture Site Arterial Line
[2022-03-01] MEDS: Midazolam HCl 2 mg/2 ml Vial SLOW IVP PRN ×2 (08:09→23:23)
[2022-03-01] MEDS: Nicotine 21 MG PATCH TOP SCH (10:08)
[2022-03-01] MEDS: levETIRAcetam 500 MG/5 ML VIAL SLOW IVP SCH ×2 (10:10→21:05)
[2022-03-01] MEDS: Thiamine 100 MG TAB PO SCH (10:11)
[2022-03-01] MEDS: Pantoprazole 40 MG VIAL IVP SCH (10:11)
[2022-03-01] MEDS: Folic Acid 1 MG TAB PO SCH (10:11)
[2022-03-01] MEDS: Polyethylene Glycol 3350 17 GM Packet PO SCH ×2 (10:11→21:05)
[2022-03-01] MEDS ORDERED: Heparin 10,000 UNITS/ 10 ML VIAL ONE (13:13)
[2022-03-01] MEDS: Cefepime 1 GM in Sodium Chloride 0.9% 100 ML IVPB SCH (17:36)
[2022-03-02 04:49] LABS: ALT (SGPT) 525 U/L (8-55); AST (SGOT) 840 U/L (5-34); Albumin 2.6 g/dL (3.5-5.0); Alkaline Phosphatase 163 U/L (40-110); Anion Gap 21 mmol/L (10-20); BUN (Urea Nitrogen) 52 mg/dL (8.9-20.6); Bilirubin, Total 4.2 mg/dL (0.2-1.2); Calc. Creatinine Clearance 9 mL/min (70-130); Calcium 8.1 mg/dL (7.8-10.44); Carbon Dioxide 23 mmol/L (22-29); Chloride 95 mmol/L (98-107); Estimated GFR 8; Globulin 3.1 g/dL (2.4-3.5); Glucose 128 mg/dL (70-105); Magnesium 2.3 mg/dL (1.6-2.6); Potassium 3.8 mmol/L (3.5-5.1); Protein, Total 5.7 g/dL (6.0-8.3); Sodium 135 mmol/L (136-145)
[2022-03-02 05:33] LABS: Band 9 % (5-11); Hypochromia SLIGHT = 6-15 cells (100X) (0-5/hpf); Lymphocytes 4 % (21-51); MDiff Complete? YES; Mean Corpuscular HGB CONC 34.5 g/dL (32.0-36.0); Mean Corpuscular Hemoglobin 31.4 pg (27.0-31.0); Mean Platelet Volume 9.5 fL (7.4-10.4); Monocytes 25 % (0-10); Neutrophil 61 % (42-75); Platelet Count 140 thou/uL (130-400); Platelet Morphology Comment Appears Adequate; RBC Distribution Width 13.3 % (11.5-14.5); Reactive Lymphocytes 1 % (0-10); White Blood Cell (WBC) Count 10.4 thou/uL (4.8-10.8)
[2022-03-02 05:43] LABS: CK (CPK) 26921 U/L (30-200)
[2022-03-02 07:39] LABS: Vancomycin, Random 17.9 ug/mL (See Comment)
[2022-03-02] MEDS: Pantoprazole 40 MG VIAL IVP SCH (09:47)
[2022-03-02] MEDS: levETIRAcetam 500 MG/5 ML VIAL SLOW IVP SCH ×2 (09:47→20:49)
[2022-03-02] MEDS: Polyethylene Glycol 3350 17 GM Packet PO SCH ×2 (09:47→20:49)
[2022-03-02] MEDS: Nicotine 21 MG PATCH TOP SCH (09:48)
[2022-03-02] MEDS: Folic Acid 1 MG TAB PO SCH (09:48)
[2022-03-02] MEDS: Thiamine 100 MG TAB PO SCH (09:48)
[2022-03-02] MEDS ORDERED: Vancomycin HCl 250 MG in Sodium Chloride 0.9% 100 ML IVPB SCH (17:00)
[2022-03-02] MEDS: Cefepime 1 GM in Sodium Chloride 0.9% 100 ML IVPB SCH (17:25)
[2022-03-03 04:59] LABS: ALT (SGPT) 404 U/L (8-55); AST (SGOT) 611 U/L (5-34); Albumin 2.5 g/dL (3.5-5.0); Alkaline Phosphatase 155 U/L (40-110); Anion Gap 20 mmol/L (10-20); BUN (Urea Nitrogen) 71 mg/dL (8.9-20.6); Bilirubin, Total 2.5 mg/dL (0.2-1.2); Calc. Creatinine Clearance 8 mL/min (70-130); Calcium 8.1 mg/dL (7.8-10.44); Carbon Dioxide 24 mmol/L (22-29); Chloride 96 mmol/L (98-107); Estimated GFR 6; Globulin 3.5 g/dL (2.4-3.5); Glucose 125 mg/dL (70-105); Magnesium 2.5 mg/dL (1.6-2.6); Potassium 3.9 mmol/L (3.5-5.1); Sodium 136 mmol/L (136-145)
[2022-03-03 05:38] LABS: Band 26 % (5-11); Hemoglobin 10.3 g/dL (14.0-18.0); Lymphocytes 9 % (21-51); MDiff Complete? YES; Mean Corpuscular HGB CONC 34.8 g/dL (32.0-36.0); Mean Corpuscular Hemoglobin 31.7 pg (27.0-31.0); Mean Corpuscular Volume 90.9 fL (78.0-98.0); Mean Platelet Volume 8.6 fL (7.4-10.4); Metamyelocyte 1 % (0-0); Monocytes 25 % (0-10); Neutrophil 39 % (42-75); Platelet Count 189 thou/uL (130-400); RBC Distribution Width 13.2 % (11.5-14.5); Red Blood Cell (RBC) Count 3.25 mill/uL (4.70-6.10); White Blood Cell (WBC) Count 13.5 thou/uL (4.8-10.8)
[2022-03-03 07:28] LABS: Actual Bicarbonate (HCO3a) 22.7 mEq/L (22-28); Base Excess (BEa) 0.6 mEq/L (-2.0 to +3.0); CO2 Tension 28.4 mmHg (35.0-45.0); Carboxyhemoglobin (COHb) 0.3 gm% (0.0-3.0); O2 Tension (PaO2), arterial 89.3 mmHg (80.0-100.0); Potassium - ABG Lab 3.87 mmol/L (3.70-5.30); pH, Arterial 7.52 (7.35-7.45)
[2022-03-03 07:41] LABS: Puncture Site LRA
[2022-03-03] MEDS ORDERED: Meropenem 1 GM in Sodium Chloride 0.9% 100 ML IVPB SCH (08:45)
[2022-03-03] MEDS: Pantoprazole 40 MG VIAL IVP SCH (08:57)
[2022-03-03] MEDS: Folic Acid 1 MG TAB PO SCH (08:57)
[2022-03-03] MEDS: Thiamine 100 MG TAB PO SCH (08:57)
[2022-03-03] MEDS: levETIRAcetam 500 MG/5 ML VIAL SLOW IVP SCH ×2 (08:57→20:26)
[2022-03-03] MEDS: Polyethylene Glycol 3350 17 GM Packet PO SCH ×2 (08:57→20:31)
[2022-03-03] MEDS: Nicotine 21 MG PATCH TOP SCH (09:41)
[2022-03-03] MEDS ORDERED: PROPOFOL 20 ML ONE (10:14)
[2022-03-03 10:18] LABS: Vancomycin, Random 20.2 ug/mL (See Comment)
[2022-03-03] MEDS ORDERED: Sodium Bicarbonate Tab 325 MG TAB PER TUBE PRN (15:45)
[2022-03-03] MEDS ORDERED: Pancrelipase DR 12,000 1 CAP FS PRN (15:45)
[2022-03-03] MEDS ORDERED: Meropenem 500 MG in Sodium Chloride 0.9% 100 ML IVPB SCH (17:00)
[2022-03-04 04:54] LABS: ALT (SGPT) 334 U/L (8-55); AST (SGOT) 471 U/L (5-34); Albumin 2.6 g/dL (3.5-5.0); Alkaline Phosphatase 186 U/L (40-110); Anion Gap 22 mmol/L (10-20); BUN (Urea Nitrogen) 56 mg/dL (8.9-20.6); Bilirubin, Total 2.2 mg/dL (0.2-1.2); Calc. Creatinine Clearance 11 mL/min (70-130); Calcium 8.5 mg/dL (7.8-10.44); Carbon Dioxide 21 mmol/L (22-29); Chloride 98 mmol/L (98-107); Estimated GFR 8; Globulin 3.7 g/dL (2.4-3.5); Glucose 106 mg/dL (70-105); Magnesium 2.4 mg/dL (1.6-2.6); Potassium 4.2 mmol/L (3.5-5.1); Protein, Total 6.3 g/dL (6.0-8.3); Sodium 137 mmol/L (136-145)
[2022-03-04 05:18] LABS: Band 12 % (5-11); Eosinophils 1 % (0-10); Lymphocytes 8 % (21-51); MDiff Complete? YES; Mean Corpuscular HGB CONC 33.6 g/dL (32.0-36.0); Mean Corpuscular Hemoglobin 31.3 pg (27.0-31.0); Mean Corpuscular Volume 93.2 fL (78.0-98.0); Mean Platelet Volume 8.4 fL (7.4-10.4); Metamyelocyte 1 % (0-0); Monocytes 19 % (0-10); Myelocyte 1 % (0-0); Neutrophil 58 % (42-75); Platelet Count 259 thou/uL (130-400); Platelet Morphology Comment Appears Adequate; RBC Morphology Normal; White Blood Cell (WBC) Count 14.7 thou/uL (4.8-10.8)
[2022-03-04 07:08] LABS: Vancomycin, Random 14.8 ug/mL (See Comment)
[2022-03-04] MEDS: levETIRAcetam 500 MG/5 ML VIAL SLOW IVP SCH ×2 (10:27→20:13)
[2022-03-04] MEDS: Nicotine 21 MG PATCH TOP SCH (10:28)
[2022-03-04] MEDS: Pantoprazole 40 MG VIAL IVP SCH (10:28)
[2022-03-04] MEDS: Folic Acid 1 MG TAB PO SCH (10:28)
[2022-03-04] MEDS: Thiamine 100 MG TAB PO SCH (10:28)
[2022-03-04] MEDS: Polyethylene Glycol 3350 17 GM Packet PO SCH ×2 (10:28→20:14)
[2022-03-04] MEDS ORDERED: Vancomycin HCl 250 MG in Sodium Chloride 0.9% 100 ML IVPB SCH (10:30)
[2022-03-04] MEDS: Meropenem 500 MG in Sodium Chloride 0.9% 100 ML IVPB SCH (17:09)
[2022-03-05 06:46] LABS: Hemoglobin 9.5 g/dL (14.0-18.0); Mean Corpuscular HGB CONC 35.3 g/dL (32.0-36.0); Mean Corpuscular Hemoglobin 31.7 pg (27.0-31.0); Mean Corpuscular Volume 89.9 fL (78.0-98.0); Mean Platelet Volume 8.1 fL (7.4-10.4); Platelet Count 334 thou/uL (130-400); RBC Distribution Width 12.8 % (11.5-14.5); Red Blood Cell (RBC) Count 2.99 mill/uL (4.70-6.10); White Blood Cell (WBC) Count 16.2 thou/uL (4.8-10.8)
[2022-03-05 06:49] LABS: ALT (SGPT) 262 U/L (8-55); AST (SGOT) 355 U/L (5-34); Albumin 2.6 g/dL (3.5-5.0); Alkaline Phosphatase 206 U/L (40-110); Anion Gap 23 mmol/L (10-20); BUN (Urea Nitrogen) 87 mg/dL (8.9-20.6); Bilirubin, Total 1.5 mg/dL (0.2-1.2); Calc. Creatinine Clearance 8 mL/min (70-130); Calcium 8.5 mg/dL (7.8-10.44); Carbon Dioxide 21 mmol/L (22-29); Chloride 97 mmol/L (98-107); Estimated GFR 6; Globulin 3.7 g/dL (2.4-3.5); Glucose 136 mg/dL (70-105); Magnesium 2.8 mg/dL (1.6-2.6); Protein, Total 6.3 g/dL (6.0-8.3); Sodium 137 mmol/L (136-145)
[2022-03-05 07:07] LABS: Vancomycin, Random 19.3 ug/mL (See Comment)
[2022-03-05 07:57] LABS: Band 8 % (5-11); Lymphocytes 11 % (21-51); MDiff Complete? YES; Monocytes 21 % (0-10); Neutrophil 60 % (42-75); Platelet Morphology Comment Appears Adequate; Polychromasia SLIGHT = 2-3 cells (100X) (0-2/hpf)
[2022-03-05] MEDS: levETIRAcetam 500 MG/5 ML VIAL SLOW IVP SCH ×2 (09:00→21:55)
[2022-03-05] MEDS: Pantoprazole 40 MG VIAL IVP SCH (09:00)
[2022-03-05] MEDS: Polyethylene Glycol 3350 17 GM Packet PO SCH ×2 (09:00→21:55)
[2022-03-05] MEDS: Nicotine 21 MG PATCH TOP SCH (09:00)
[2022-03-05] MEDS: Thiamine 100 MG TAB PO SCH (09:00)
[2022-03-05] MEDS: Folic Acid 1 MG TAB PO SCH (09:00)
[2022-03-05] MEDS ORDERED: Heparin 10,000 UNITS/ 10 ML VIAL ONE (09:23)
[2022-03-05 10:50] VITALS: BMI 25.0
[2022-03-05] MEDS ORDERED: Vancomycin HCl 250 MG in Sodium Chloride 0.9% 100 ML IVPB SCH ×2 (17:00→22:30)
[2022-03-05] MEDS: Meropenem 500 MG in Sodium Chloride 0.9% 100 ML IVPB SCH (22:30)
[2022-03-06 05:35] LABS: Band 3 % (5-11); Hemoglobin 9.6 g/dL (14.0-18.0); Lymphocytes 9 % (21-51); MDiff Complete? YES; Mean Corpuscular HGB CONC 35.3 g/dL (32.0-36.0); Mean Corpuscular Hemoglobin 31.5 pg (27.0-31.0); Mean Corpuscular Volume 89.5 fL (78.0-98.0); Mean Platelet Volume 7.4 fL (7.4-10.4); Metamyelocyte 1 % (0-0); Monocytes 13 % (0-10); Neutrophil 74 % (42-75); Platelet Count 367 thou/uL (130-400); Platelet Morphology Comment Appears Adequate; RBC Distribution Width 12.7 % (11.5-14.5); RBC Morphology Normal; Red Blood Cell (RBC) Count 3.03 mill/uL (4.70-6.10); White Blood Cell (WBC) Count 17.5 thou/uL (4.8-10.8)
[2022-03-06 05:36] LABS: ALT (SGPT) 248 U/L (8-55); AST (SGOT) 435 U/L (5-34); Albumin 2.6 g/dL (3.5-5.0); Alkaline Phosphatase 219 U/L (40-110); Anion Gap 18 mmol/L (10-20); BUN (Urea Nitrogen) 65 mg/dL (8.9-20.6); Bilirubin, Total 1.5 mg/dL (0.2-1.2); Calc. Creatinine Clearance 12 mL/min (70-130); Calcium 8.7 mg/dL (7.8-10.44); Carbon Dioxide 24 mmol/L (22-29); Chloride 99 mmol/L (98-107); Estimated GFR 9; Glucose 120 mg/dL (70-105); Potassium 4.3 mmol/L (3.5-5.1); Protein, Total 6.6 g/dL (6.0-8.3); Sodium 137 mmol/L (136-145)
[2022-03-06 07:28] VITALS: TEMP 100
[2022-03-06] MEDS: levETIRAcetam 500 MG/5 ML VIAL SLOW IVP SCH (08:50)
[2022-03-06] MEDS: Folic Acid 1 MG TAB PO SCH (08:50)
[2022-03-06] MEDS: Thiamine 100 MG TAB PO SCH (08:50)
[2022-03-06] MEDS: Pantoprazole 40 MG VIAL IVP SCH (08:51)
[2022-03-06] MEDS: Polyethylene Glycol 3350 17 GM Packet PO SCH (08:51)
[2022-03-06 10:30] VITALS: BP 138/85
== END 2022-03-06 18:15 | disposition hospice, inpatient (51) | DRG 207 ==
LOC: EDBD → ERS 17:41 → CCU 20:51 → IMCU/EMU 02-26 10:26 → CCU 02-27 21:01
PROVIDERS: ADMIT Internal Medicine; ATTEND Internal Medicine
PROC: 0BH17EZ Insertion of Endotracheal Airway into Trachea, Via Natural or Artificial Opening (ICD-10-PCS; 2022-02-24)
PROC: 0D9670Z Drainage of Stomach with Drainage Device, Via Natural or Artificial Opening (ICD-10-PCS; 2022-02-24)
PROC: 5A1945Z Respiratory Ventilation, 24-96 Consecutive Hours (ICD-10-PCS; 2022-02-24)
PROC: 5A1955Z Respiratory Ventilation, Greater than 96 Consecutive Hours (ICD-10-PCS; principal; 2022-02-27)
PROC: 06HY33Z Insertion of Infusion Device into Lower Vein, Percutaneous Approach (ICD-10-PCS; 2022-02-27)
PROC: 5A1D70Z Performance of Urinary Filtration, Intermittent, Less than 6 Hours Per Day (ICD-10-PCS; 2022-02-27)
PROC: 03HY32Z Insertion of Monitoring Device into Upper Artery, Percutaneous Approach (ICD-10-PCS; 2022-02-27)
PROC: 5A12012 Performance of Cardiac Output, Single, Manual (ICD-10-PCS; 2022-02-27)
PROC: 02H633Z Insertion of Infusion Device into Right Atrium, Percutaneous Approach (ICD-10-PCS; 2022-02-27)
PROC: 3E043XZ Introduction of Vasopressor into Central Vein, Percutaneous Approach (ICD-10-PCS; 2022-02-27)
PROC: 3E0G76Z Introduction of Nutritional Substance into Upper GI, Via Natural or Artificial Opening (ICD-10-PCS; 2022-02-27)
DX: J96.01 Acute respiratory failure with hypoxia (principal); G93.41 Metabolic encephalopathy; N18.6 End stage renal disease; I21.A1 Myocardial infarction type 2; K72.00 Acute and subacute hepatic failure without coma; I46.8 Cardiac arrest due to other underlying condition; R57.0 Cardiogenic shock; T67.01XA Heatstroke and sunstroke, initial encounter; E87.0 Hyperosmolality and hypernatremia; E87.2 Acidosis; M62.82 Rhabdomyolysis; I42.9 Cardiomyopathy, unspecified; I13.2 Hypertensive heart and chronic kidney disease with heart failure and with stage 5 chronic kidney disease, or end stage renal disease; N17.9 Acute kidney failure, unspecified; I50.22 Chronic systolic (congestive) heart failure; N39.0 Urinary tract infection, site not specified; F10.231 Alcohol dependence with withdrawal delirium; G93.1 Anoxic brain damage, not elsewhere classified; Z66 Do not resuscitate; Z20.822 Contact with and (suspected) exposure to COVID-19; S00.211A Abrasion of right eyelid and periocular area, initial encounter; X58.XXXA Exposure to other specified factors, initial encounter; E87.5 Hyperkalemia; E86.0 Dehydration; F19.10 Other psychoactive substance abuse, uncomplicated; T51.0X2A Toxic effect of ethanol, intentional self-harm, initial encounter; E16.2 Hypoglycemia, unspecified; E87.6 Hypokalemia; R00.1 Bradycardia, unspecified; D69.6 Thrombocytopenia, unspecified; D63.1 Anemia in chronic kidney disease; I27.20 Pulmonary hypertension, unspecified; F14.10 Cocaine abuse, uncomplicated; Z78.1 Physical restraint status
CPT/HCPCS: 31500; 36415; 36416; 36600; 51702; 70450; 70553; 71045; 72125; 74018; 76700; 76856; 80053; 80061; 80074; 80202; 80306; 80307; 81003; 81015; 82140; 82248; 82550; 82553; 82728; 82805; 83036; 83540; 83550; 83605; 83690; 83735; 84443; 84484; 85025; 85046; 85060; 85610; 85730; 86850; 86900; 86901; 87040; 87086; 87324; 87449; 90935; 93005; 93010; 93306; 93970; 94002; 94003; 95816; 95819; 95957; 96361; 96374; 96375; C9113; G0257; J0610; J0692; J0696; J1630; J1644; J1815; J1940; J1953; J2060; J2185; J2250; J2704; J3010; J3360; J3370; J3411; J3475; J3490; J7050; J7070; J7120; J7999; U0002; U0003; U0005

== ENCOUNTER 2022-03-06 18:15 | Inpatient (IN) | payer OTHER ==
[2022-03-06] MEDS ORDERED: Haloperidol Lactate 5 MG/ML VIAL SLOW IVP PRN ×2 (21:00→21:45)
[2022-03-06] MEDS ORDERED: diphenhydrAMINE 50 MG/ML VIAL IVP PRN (21:00)
[2022-03-06] MEDS ORDERED: Lorazepam (BATCHED) 2 MG/ML SYR SLOW IVP SCH (21:00)
[2022-03-06] MEDS ORDERED: Ondansetron PF 4 MG/2 ML Vial IVP PRN (21:00)
[2022-03-06] MEDS ORDERED: Morphine 4 MG/ML VIAL SLOW IVP SCH (21:00)
[2022-03-06] MEDS ORDERED: Bisacodyl 10 MG SUPP PR PRN (21:04)
[2022-03-06] MEDS ORDERED: Morphine 4 MG/ML VIAL SLOW IVP PRN (21:07)
[2022-03-06] MEDS ORDERED: Lorazepam (BATCHED) 2 MG/ML SYR SLOW IVP PRN (21:09)
[2022-03-06] MEDS: Morphine 4 MG/ML VIAL SLOW IVP SCH ×5 (21:25→22:54)
[2022-03-06] MEDS: Lorazepam (BATCHED) 2 MG/ML SYR SLOW IVP SCH ×3 (21:48→22:54)
[2022-03-06] MEDS ORDERED: Fentanyl CADD 0 ML ONE (22:26)
[2022-03-07] MEDS: Morphine 4 MG/ML VIAL SLOW IVP SCH ×6 (01:03→23:03)
[2022-03-07] MEDS: Lorazepam 2 MG/ML VIAL SLOW IVP SCH ×6 (01:03→23:03)
[2022-03-07] MEDS ORDERED: Scopolamine 1.5 mg/72 hour Patch TOP SCH (12:00)
[2022-03-07] MEDS ORDERED: Scopolamine 1.5 mg/72 hour Patch TOP PRN (12:15)
[2022-03-08] MEDS: Morphine 4 MG/ML VIAL SLOW IVP SCH ×6 (02:13→21:00)
[2022-03-08] MEDS: Lorazepam 2 MG/ML VIAL SLOW IVP SCH ×6 (02:13→21:00)
[2022-03-08] MEDS: Acetaminophen 650 MG Suppository PR PRN (15:03)
[2022-03-09] MEDS: Lorazepam 2 MG/ML VIAL SLOW IVP SCH ×6 (01:00→21:02)
[2022-03-09] MEDS: Morphine 4 MG/ML VIAL SLOW IVP SCH ×6 (01:00→21:01)
[2022-03-09] MEDS: Acetaminophen 650 MG Suppository PR PRN (11:25)
[2022-03-09 21:46] VITALS: BP 131/73; TEMP 99.9
[2022-03-10] MEDS: Morphine 4 MG/ML VIAL SLOW IVP SCH (00:53)
[2022-03-10] MEDS: Lorazepam 2 MG/ML VIAL SLOW IVP SCH (00:59)
== END 2022-03-10 02:50 | disposition expired | DRG 951 ==
LOC: CCU 18:15 → EDBD 18:15 → T4-A 03-07 05:59
PROVIDERS: ADMIT Internal Medicine; ATTEND Internal Medicine
DX: Z51.5 Encounter for palliative care (principal); J96.01 Acute respiratory failure with hypoxia; G93.41 Metabolic encephalopathy; N17.9 Acute kidney failure, unspecified; M62.82 Rhabdomyolysis; N39.0 Urinary tract infection, site not specified; Z66 Do not resuscitate; Z20.822 Contact with and (suspected) exposure to COVID-19; E78.5 Hyperlipidemia, unspecified; Z79.899 Other long term (current) drug therapy
CPT/HCPCS: J1200; J2060; J2270